=== PATIENT | female | born 1975 | race Caucasian/White ===

== ENCOUNTER 2020-08-23 11:13 | Emergency (ER) | payer OTHER ==
[~2020-08-23] VITALS: Ht 167.6 cm; Wt 95.5 kg
[2020-08-23 11:16] VITALS: BP 136/76
== END 2020-08-23 11:46 | disposition home or self-care (01) ==
LOC: EMS 11:27
DX: Z20.828 Contact with and (suspected) exposure to other viral communicable diseases (principal)
CPT/HCPCS: 99283; U0003